=== PATIENT | female | born 1955 | race Caucasian/White ===

== ENCOUNTER 2022-02-14 15:52 | Inpatient (IN) ==
--- NOTE | 2022-02-14 16:04 | Emergency Department Note ---
Impression & Plan Gram-negative bacteremia, Weakness ED Provider Note Provider: Devyn Abbott MD DATE OF SERVICE: 02/14/2022 CHIEF COMPLAINT: Return due to + blood cultures HISTORY OF PRESENT ILLNESS: Patient is a 66-year-old female seen by myself here yesterday for 5 days of fever and myalgias. Blood cultures returned today several bottles with gram-negative axillae. Received ceftriaxone yesterday and sent home on cefdinir for presumed UTI. Patient and denies any significant breathing issues or chest pain. Patient reports that since last evening when she left still with some weakness. No fevers. Feeling may be a bit better. Denies any abdominal pain or flank pain. REVIEW OF SYSTEMS: A total of 10 review of systems was obtained and negative except as stated above in the HPI. PAST MEDICAL HISTORY: As noted above MEDICATIONS: Reviewed home medications started cefdinir today SOCIAL HISTORY: PHYSICAL EXAM: GENERAL: alert and oriented in no acute distress on stretcher Head: normocephalic and atraumatic EYES: No injection, discharge or icterus. NECK: Trachea midline. ENT: Mucous membranes pink and moist. LUNGS: Airway patent. No retractions or tachypnea HEART: Regular rate and rhythm. ABDOMEN: Soft and non-tender, without guarding or rebound. SKIN: Acyanotic, warm, dry, without rashes EXTREMITIES: Without swelling, tenderness or deformity NEUROLOGICAL: No focal deficits. No aphasia. No facial droop or slurred speech. Ambulatory. EK bpm normal sinus rhythm. No PVC or PAC. No acute ST segment elevation or depression with a QTC of 423. CONTINUOUS CARDIAC MONITORING: was ordered and showed a heart rate of 70s-80s bpm in NSR Patient's laboratory studies and imaging reviewed. Differential includes Viral syndrome, otitis, pharyngitis, pneumonia, influenza, meningitis, urinary tract infection, sepsis, bacteremia, as well as other pathologies. IMPRESSION/MEDICAL DECISION MAKING: Blood cultures from yesterday growing gram-negative bacilli. Urine culture yesterday with multiple organisms. We will repeat collection as well as cultures. We will see ceftriaxone yesterday and given another dose of this here today. Benign abdomen on exam. PCR presumes E. coli from the blood cultures. Chest x-ray today reassuring and I doubt this is pneumonia. Does not appear meningitic. Not hypotensive or febrile or tachycardic upon arrival here. Given some IV fluid as well. EKG and troponin are reassuring. Procalcitonin still elevated to 3.9 but white count is trending towards improvement at 13 today. Some hypokalemia noted but will defer additional treatment to the inpatient team. Hospitalist to admit. Did receive again broad-spectrum antibiotics. DIAGNOSIS: Gram-negative bacteremia, weakness, hypokalemia DISPOSITION: Hospitalist will evaluate Patient was agreeable with this plan. Past Med/Surg History Medical History (Updated 02/14/22 @ 17:25 by Hola Garza MD) Hepatitis C, chronic Osteoarthritis of left hip Surgical History History of left hip replacement History of total replacement of both hip joints Family History Mother Breast cancer Father Coronary heart disease Other Cancer Social History Smoking Status: Never smoker Hx Alcohol Use: No Hx Substance Use: No Preferred Language: Macanese Communication Ability: Effective Jet Wiper Required: No Beliefs That Will Affect Care: Gnosticism Gnosticism Beliefs: christianity marital status: Current Living Situation: Spouse current occupational status: employed Other Information That Helps Us Care for You: No Feels Safe at Home: Yes Safety Concerns: Feels Safe At This Time Assistive Devices: None Allergies Allergies Allergy/AdvReac Type Severity Reaction Status Date / Time No Known Allergies Verified 02/13/22 18:00 Home Meds Home Medications Medication Instructions Recorded Confirmed cholecalciferol (vitamin D3) 25 0 mcg PO DAILY 02/13/22 02/13/22 mcg (1,000 unit) capsule (Vitamin D3) magnesium oxide 0 mg PO DAILY 02/13/22 02/13/22 Previous Rx's Medication Instructions Recorded cefdinir 300 mg capsule 300 mg PO BID 7 days #14 caps 02/13/22 Results & Data (ED) Vital Signs Vital Signs - 24 hr 02/14/22 16:00 Temperature 36.7 C Temperature Source Temporal Artery Scan Pulse Rate 80 Respiratory Rate 18 Respiratory Effort / Characteristics Non-Labored Respiratory Depth Normal Blood Pressure 108/62 Blood Pressure Mean 77 Blood Pressure Position Sitting Pulse Oximetry 96 Oxygen Delivery Method Room Air Sepsis Recent Fever Within 48 Hours No Sepsis New/Unexplained Change in Mental Status No Sepsis Action Taken by Nursing No Action Required Laboratory Data Result diagrams: 02/14/22 17:43 02/14/22 17:43 Lab Results 02/14/22 02/14/22 02/14/22 Range/Units 17:26 17:43 17:43 WBC 13.03 H (4.8-10.8) K/ul RBC 3.57 L (3.93-5.22) M/uL Hgb 10.9 L (12.0-16.0) g/dl Hct 32.3 L (34.1-44.9) % MCV 90.5 D (80.0-100.0) fL MCH 30.5 (25.0-34.0) pg MCHC 33.7 (32.0-36.0) g/dL RDW Std Deviation 44.0 (36.4-46.3) fL RDW Coeff of Emelina 13.2 (11.5-14.5) % Plt Count 137 (130-400) K/uL MPV 12.5 H (9.4-12.3) fL Immature Gran % (Auto) 1.7 % Neut % (Auto) 61.1 % Lymph % (Auto) 23.4 % [place] % (Auto) 12.6 % Eos % (Auto) 0.9 % Baso % (Auto) 0.3 % Neut # (Auto) 7.96 H (1.4-6.5) K/uL Lymph # (Auto) 3.05 (1.2-3.4) K/uL [place] # (Auto) 1.64 H (0.24-0.82) K/uL Eos # (Auto) 0.12 (0-0.50) K/uL Baso # (Auto) 0.04 (0-0.2) K/uL Immature Gran # (Auto) 0.22 H (0.00-0.02) K/uL Echinocytes 2+ Acanthocytes (Spur) 3+ Sodium 136 (136-145) mmol/L Potassium 2.9 L (3.5-5.1) mmol/L Chloride 107 (98-107) mmol/L Carbon Dioxide 22 (21-32) mmol/L Anion Gap 7 (3-11) BUN 23 (6-23) mg/dl Creatinine 0.85 D (0.6-1.2) mg/dl Est Cr Clr Drug Dosing 68.7 ml/min Est GFR ( Amer) 82.2 ml/min Est GFR (Non-Af Amer) 70.9 ml/min BUN/Creatinine Ratio 27.1 H (10-20) Glucose 91 (70-99(Fasting)) mg/dl Lactate (0.4-2.0) mmol/L Calcium 7.7 L (8.5-10.1) mg/dl Total Bilirubin 0.4 (0.2-1.0) mg/dl AST 27 (13-39) U/L ALT 27 (7-52) U/L Alkaline Phosphatase 69 (34-104) U/L Troponin I High Sens 7.2 D (0-14) pg/ml Total Protein 6.5 (6.0-8.3) gm/dl Albumin 3.0 L (3.4-5.0) gm/dl Globulin 3.5 (2.5-4.0) gm/dl Albumin/Globulin Ratio 0.9 (0.9-2) Procalcitonin (0-0.5) ng/ml SARS-CoV-2, RNA, NAAT NEGATIVE (NEGATIVE) 02/14/22 02/14/22 Range/Units 17:43 17:43 WBC (4.8-10.8) K/ul RBC (3.93-5.22) M/uL Hgb (12.0-16.0) g/dl Hct (34.1-44.9) % MCV (80.0-100.0) fL MCH (25.0-34.0) pg MCHC (32.0-36.0) g/dL RDW Std Deviation (36.4-46.3) fL RDW Coeff of Emelina (11.5-14.5) % Plt Count (130-400) K/uL MPV (9.4-12.3) fL Immature Gran % (Auto) % Neut % (Auto) % Lymph % (Auto) % [place] % (Auto) % Eos % (Auto) % Baso % (Auto) % Neut # (Auto) (1.4-6.5) K/uL Lymph # (Auto) (1.2-3.4) K/uL [place] # (Auto) (0.24-0.82) K/uL Eos # (Auto) (0-0.50) K/uL Baso # (Auto) (0-0.2) K/uL Immature Gran # (Auto) (0.00-0.02) K/uL Echinocytes Acanthocytes (Spur) Sodium (136-145) mmol/L Potassium (3.5-5.1) mmol/L Chloride (98-107) mmol/L Carbon Dioxide (21-32) mmol/L Anion Gap (3-11) BUN (6-23) mg/dl Creatinine (0.6-1.2) mg/dl Est Cr Clr Drug Dosing ml/min Est GFR ( Amer) ml/min Est GFR (Non-Af Amer) ml/min BUN/Creatinine Ratio (10-20) Glucose (70-99(Fasting)) mg/dl Lactate 0.8 (0.4-2.0) mmol/L Calcium (8.5-10.1) mg/dl Total Bilirubin (0.2-1.0) mg/dl AST (13-39) U/L ALT (7-52) U/L Alkaline Phosphatase (34-104) U/L Troponin I High Sens (0-14) pg/ml Total Protein (6.0-8.3) gm/dl Albumin (3.4-5.0) gm/dl Globulin (2.5-4.0) gm/dl Albumin/Globulin Ratio (0.9-2) Procalcitonin 3.93 H (0-0.5) ng/ml SARS-CoV-2, RNA, NAAT (NEGATIVE) Administered Medications Enoxaparin Sodium (Enoxaparin Inj 40 Mg/0.4 Ml Syr) 40 mg SQ Q24H COURTNEY Stop: 03/16/22 20:29 Last Admin: 02/14/22 21:02 Dose: 40 mg Documented By: RH Discontinued Medications Ceftriaxone Sodium (Rocephin) 2,000 mg in 70 mls @ 140 mls/hr IV NOW STA Stop: 02/14/22 17:03 Last Infusion: 02/14/22 18:59 Dose: 0 mls/hr Documented By: Admin: 02/14/22 17:53 Dose: 140 mls/hr Documented By: DARCY Sodium Chloride (Nss 1000ml) 1,000 mls @ 999 mls/hr IV .Q1H1M ONE Stop: 02/14/22 17:34 Last Infusion: 02/14/22 18:59 Dose: 0 mls/hr Documented By: Admin: 02/14/22 17:20 Dose: 999 mls/hr Documented By: DARCY Discharge Plan Visit Data Chief Complaint: Abnormal Labs/Diagnostic Testing Stated Complaint[facility] Provider: Devyn Abbott Discharge Problem: Gram-negative bacteremia, Weakness Patient Disposition: Admitted As Inpatient Discharge Instructions Interventions: ED Discharge Assessment Last Done: 02/14/22 19:15
[2022-02-14] MEDS ORDERED: cefTRIAXone SODIUM 2,000 MG/70 ML BAG IV STA (16:34)
[2022-02-14] MEDS ORDERED: SODIUM CHLORIDE 0.9% 1000ML 1,000 ML IV ONE (16:34)
--- NOTE | 2022-02-14 17:21 | History & Physical Report ---
Date of Service February 14, 2022 Assessment & Plan (1) Bacteremia due to Escherichia coli: (2) Hypokalemia: (3) Hyponatremia: Plan E.coli bacteremia: -likely urinary source --- UA + for Leuk --- repeating BCx and UCx sent -VSS and overall normal exam -pt currently does not have any abd symptoms therefore no need for any abd imaging -Started the pt on ceftriaxone - neg for COVID/Flu/RSV and Lyme/anaplasmosis Electrolytes abnormalities: - Na+ 134 and K+ 3.3 --- these values are from yesterday - will repeat BMP before treatment Chronic Hep C s/p treatment: -Lfts were normal Diet: Regular diet DVT PPx: Lovenox Code Status: Full code Emergency Contact: : Ivana Benavides [phone] History of Present Illness Chief Complaint: fever and chills Primary Care Provider: Jerardo Rosario MD Pt is a 66 y/o F with Hep C s/p treatment, DJD, b/l PENNY came into the ER for 1 week hx of fever (tmax of 103F), Chills, lack of appetite, and nausea. Denied any abd pain, diarrhea, vomiting, rash, rhinorrhea, nasal congestion or recent procedure. Denied any hx of kidney stones. At bedside: pt denied any CP, SOB, abd pain, dysuria, hematuria, or change in urinary frequency/urgency. Pt was in the ER yesterday and her BCx came back positive for E.coli Allergies Allergy/AdvReac Type Severity Reaction Status Date / Time No Known Allergies Verified 02/13/22 18:00 Home Medications Medication Instructions Recorded Confirmed Type cefdinir 300 mg capsule 300 mg PO BID 7 days #14 caps 02/13/22 Rx cholecalciferol (vitamin D3) 25 0 mcg PO DAILY 02/13/22 02/13/22 History mcg (1,000 unit) capsule (Vitamin D3) magnesium oxide 0 mg PO DAILY 02/13/22 02/13/22 History Past Med/Surg History Medical History (Updated 02/14/22 @ 17:25 by Hola Garza MD) Hepatitis C, chronic Osteoarthritis of left hip Surgical History History of left hip replacement History of total replacement of both hip joints Family History Mother Breast cancer Father Coronary heart disease Other Cancer Social History Smoking Status: Never smoker Preferred Language: American marital status: Current Living Situation: Spouse current occupational status: employed Feels Safe at Home: Yes Review of Systems Review of Systems: At least 10 Review of systems were reviewed and all negative except as indicated in HPI Physical Exam Physical Exam: General:. NAD, well developed, well nourished, average body habitus HEENT:. Normocephalic and atraumatic, Normal Conjunctiva, EOMI, Sclera is non-ic teric Lungs:. No signs of respiratory distress, CTA, no wheezing or crackles Heart:. Normal S1, S2, no murmur Abdominal:. ND, Soft, NT MSK:trace b/l LE pitting edema Skin:. no rash or open wound Psych:. AAOx3, normal affect Results & Data Results & Data ([facility]) Vital Signs (Past 12 Hours) Vital Signs Temp Pulse Resp BP Pulse Ox O2 Del Method 02/14/22 16:00 36.7 C 80 18 108/62 96 Room Air Code Status & VTE Plan VTE Prophylaxis Plan VTE Prophylaxis will be ordered: Yes
[2022-02-14 18:22] LABS: Hematocrit (blood only) 32.3 % (34.1-44.9); Hemoglobin 10.9 g/dl (12.0-16.0); Mean Corpuscular Hemoglobin 30.5 pg (25.0-34.0); Mean Corpuscular Hgb Conc 33.7 g/dL (32.0-36.0); Mean Corpuscular Volume 90.5 fL (80.0-100.0); Mean Platelet Volume 12.5 fL (9.4-12.3); Platelet Count 137 K/uL (130-400); RDW Coefficient of Variation 13.2 % (11.5-14.5); Red Blood Count 3.57 M/uL (3.93-5.22); White Blood Count 13.03 K/ul (4.8-10.8)
[2022-02-14 18:25] LABS: Acanthocytes 3+; Basophils # (auto) 0.04 K/uL (0-0.2); Basophils % (auto) 0.3 %; Echinocytes 2+; Eosinophils # (auto) 0.12 K/uL (0-0.50); Eosinophils % (auto) 0.9 %; Immature Granulocytes # (auto) 0.22 K/uL (0.00-0.02); Immature Granulocytes % (auto) 1.7 %; Lymphocytes # (auto) 3.05 K/uL (1.2-3.4); Lymphocytes % (auto) 23.4 %; Monocytes # (auto) 1.64 K/uL (0.24-0.82); Monocytes % (auto) 12.6 %; Neutrophils # (auto) 7.96 K/uL (1.4-6.5); Neutrophils % (auto) 61.1 %
[2022-02-14 18:37] LABS: Albumin Globulin Ratio 0.9 (0.9-2); BUN Creatinine Ratio 27.1 (10-20); Bilirubin,Total 0.4 mg/dl (0.2-1.0); Calcium 7.7 mg/dl (8.5-10.1); Creatinine Clr Calc Pharmacy 68.7 ml/min; Est GFR (African American) 82.2 ml/min; Est GFR (Non-African American) 70.9 ml/min; Globulin 3.5 gm/dl (2.5-4.0); Potassium 2.9 mmol/L (3.5-5.1); Total Protein 6.5 gm/dl (6.0-8.3); Troponin I High Sensitivity 7.2 pg/ml (0-14)
[2022-02-14 19:05] LABS: Appearance Urine Clear (Clear); Bacteria Urine Automated Negative (Negative); Bilirubin Urine Negative (Negative); Blood Urine Negative (Negative); Color Urine Yellow; Epithelial Cell Urine Auto >30 /lpf (0-5); Glucose Urine UA Negative (Negative); Ketones Urine Negative (Negative); Leukocyte Esterase Urine 2+ (Negative); Nitrite Urine Negative (Negative); Protein Urine 1+ (Negative); RBC Urine Automated 0-4 /hpf (0-4); Specific Gravity Urine 1.011 (1.000-1.030); Urobilinogen Urine Negative (Negative); pH Urine 6.5 (4.5-7.5)
[2022-02-14] MEDS ORDERED: ACETAMINOPHEN 325 MG TAB PO PRN (19:54)
[2022-02-14] MEDS: ENOXAPARIN INJ 40 MG/0.4 ML SYR SQ SCH (21:02)
[2022-02-15 06:40] LABS: Hematocrit (blood only) 36.6 % (34.1-44.9); Hemoglobin 12.6 g/dl (12.0-16.0); Mean Corpuscular Hemoglobin 30.5 pg (25.0-34.0); Mean Corpuscular Hgb Conc 34.4 g/dL (32.0-36.0); Mean Corpuscular Volume 88.6 fL (80.0-100.0); Mean Platelet Volume 12.7 fL (9.4-12.3); Platelet Count 158 K/uL (130-400); RDW Coefficient of Variation 13.2 % (11.5-14.5); RDW Standard Deviation 43.1 fL (36.4-46.3); Red Blood Count 4.13 M/uL (3.93-5.22)
[2022-02-15 07:05] LABS: Basophils # (auto) 0.07 K/uL (0-0.2); Basophils % (auto) 0.6 %; Eosinophils # (auto) 0.12 K/uL (0-0.50); Immature Granulocytes # (auto) 0.48 K/uL (0.00-0.02); Immature Granulocytes % (auto) 3.9 %; Lymphocytes % (auto) 30.1 %; Monocytes # (auto) 1.11 K/uL (0.24-0.82); Neutrophils # (auto) 6.82 K/uL (1.4-6.5); Neutrophils % (auto) 55.4 %
[2022-02-15 07:07] LABS: BUN Creatinine Ratio 23.5 (10-20); Calcium 8.5 mg/dl (8.5-10.1); Creatinine Clr Calc Pharmacy 68.9 ml/min; Est GFR (African American) 82.2 ml/min; Est GFR (Non-African American) 70.9 ml/min; Magnesium 2.2 mg/dl (1.7-2.4); Potassium 3.7 mmol/L (3.5-5.1)
--- NOTE | 2022-02-15 11:19 | Electrocardiogram Report ---
Test Reason : Blood Pressure : / mmHG Vent. Rate : 071 BPM Atrial Rate : 071 BPM P-R Int : 142 ms QRS Dur : 066 ms QT Int : 390 ms P-R-T Axes : 035 -01 026 degrees QTc Int : 423 ms Poor data quality, interpretation may be adversely affected Normal sinus rhythm Normal ECG When compared with ECG of 13-FEB-2022 18:10, No significant change was found Confirmed by Zia Ayers ([id number]) on 02/15/2022 11:18:42 AM Referred By: Devyn Abbott Confirmed By:Zia Ayers
--- NOTE | 2022-02-15 13:38 | Hospitalist Progress Note ---
Date of Service February 15, 2022 Assessment & Plan (1) Bacteremia due to Escherichia coli: (2) Hypokalemia: (3) Hyponatremia: Plan Gram-negative bacteremia Likely urinary source Urinalysis shows 1+ leukocyte esterase with greater than 30 WBC Leukocytosis present Urine culture on 02/13 showed 3 types of organism; all moderate count. Blood culture on 02/13 shows gram-negative bacilli; bio fire positive for E. coli. Repeat urine culture negative; patient received antibiotic prior to urine culture. Blood culture from 02/14 pending Plan; Continue on ceftriaxone for now. Repeat blood culture are pending. -- Monitor for signs of fever. -ID consulted for duration and route of antibiotics. Electrolytes abnormalities: Improved after hydration Chronic Hep C s/p treatment: -Lfts were normal Diet: Regular diet DVT PPx: Lovenox Code Status: Full code Emergency Contact: : Ivana Benavides [phone] Admission and Anticipated Discharge Date Admission Date: February 14, 2022 Subjective Patient seen and examined at bedside. She is comfortable; not in any distress. Patient was febrile 1 week prior to presentation to the ED on 02/13. She is comfortable presently; no episode of fever since admission. Denies any symptoms of UTI. Review of Systems Review of Systems: All systems reviewed & are unremarkable except as noted in Subjective Physical Exam Physical Exam: Constitutional: WD/WN, vitals as above, NAD, sitting up in bed, pleasant, conversing easily Respiratory: normal respiratory effort, lungs clear to auscultation, no wheeze, rales, rhonchi. Normal insp/exp effort, no accessory muscle use Cardiovascular: RRR, no murmur, no edema Vessels: no JVD or carotid bruit Chest: normal inspection of chest Abdomen: Soft, nontender. costovertebral bo not tender. Musculoskeletal: no cyanosis or clubbing, extremities motor strength 5/5 Skin: no rashes, warm and dry normal turgor Neurologic: PERRL, EOMI, accommodation nl, no face palsy, no dysarthria CN's II- XI intact bilaterally and moves all extremities Psychiatric: A+Ox3, euthymic affect Lymphatic: no cervical or axillary lymphadenopathy : deferred Results & Data Results & Data ([facility]) Vital Signs (Past 12 Hours) Vital Signs Temp Pulse Resp BP Pulse Ox O2 Del Method 02/15/22 07:18 36.4 C L 64 16 118/73 97 Room Air Laboratory Results Laboratory Results WBC 12.30 K/ul (4.8-10.8) H 02/15/22 05:37 RBC 4.13 M/uL (3.93-5.22) 02/15/22 05:37 Hgb 12.6 g/dl (12.0-16.0) 02/15/22 05:37 Hct 36.6 % (34.1-44.9) 02/15/22 05:37 MCV 88.6 fL (80.0-100.0) 02/15/22 05:37 MCH 30.5 pg (25.0-34.0) 02/15/22 05:37 MCHC 34.4 g/dL (32.0-36.0) 02/15/22 05:37 RDW Std Deviation 43.1 fL (36.4-46.3) 02/15/22 05:37 RDW Coeff of Emelina 13.2 % (11.5-14.5) 02/15/22 05:37 Plt Count 158 K/uL (130-400) 02/15/22 05:37 MPV 12.7 fL (9.4-12.3) H 02/15/22 05:37 Immature Gran % (Auto) 3.9 % 02/15/22 05:37 Neut % (Auto) 55.4 % 02/15/22 05:37 Lymph % (Auto) 30.1 % 02/15/22 05:37 [place] % (Auto) 9.0 % 02/15/22 05:37 Eos % (Auto) 1.0 % 02/15/22 05:37 Baso % (Auto) 0.6 % 02/15/22 05:37 Neut # (Auto) 6.82 K/uL (1.4-6.5) H 02/15/22 05:37 Lymph # (Auto) 3.70 K/uL (1.2-3.4) H 02/15/22 05:37 [place] # (Auto) 1.11 K/uL (0.24-0.82) H 02/15/22 05:37 Eos # (Auto) 0.12 K/uL (0-0.50) 02/15/22 05:37 Baso # (Auto) 0.07 K/uL (0-0.2) 02/15/22 05:37 Immature Gran # (Auto) 0.48 K/uL (0.00-0.02) H 02/15/22 05:37 Echinocytes 2+ 02/14/22 17:43 Acanthocytes (Spur) 3+ 02/14/22 17:43 Sodium 137 mmol/L (136-145) 02/15/22 05:37 Potassium 3.7 mmol/L (3.5-5.1) D 02/15/22 05:37 Chloride 107 mmol/L (98-107) 02/15/22 05:37 Carbon Dioxide 23 mmol/L (21-32) 02/15/22 05:37 Anion Gap 7 (3-11) 02/15/22 05:37 BUN 20 mg/dl (6-23) 02/15/22 05:37 Creatinine 0.85 mg/dl (0.6-1.2) 02/15/22 05:37 Est Cr Clr Drug Dosing 68.9 ml/min 02/15/22 05:37 Est GFR ( Amer) 82.2 ml/min 02/15/22 05:37 Est GFR (Non-Af Amer) 70.9 ml/min 02/15/22 05:37 BUN/Creatinine Ratio 23.5 (10-20) H 02/15/22 05:37 Glucose 99 mg/dl (70-99(Fasting)) 02/15/22 05:37 Lactate 0.8 mmol/L (0.4-2.0) 02/14/22 17:43 Calcium 8.5 mg/dl (8.5-10.1) 02/15/22 05:37 Magnesium 2.2 mg/dl (1.7-2.4) 02/15/22 05:37 Total Bilirubin 0.4 mg/dl (0.2-1.0) 02/14/22 17:43 AST 27 U/L (13-39) 02/14/22 17:43 ALT 27 U/L (7-52) 02/14/22 17:43 Alkaline Phosphatase 69 U/L (34-104) 02/14/22 17:43 Troponin I High Sens 7.2 pg/ml (0-14) D 02/14/22 17:43 Total Protein 6.5 gm/dl (6.0-8.3) 02/14/22 17:43 Albumin 3.0 gm/dl (3.4-5.0) L 02/14/22 17:43 Globulin 3.5 gm/dl (2.5-4.0) 02/14/22 17:43 Albumin/Globulin Ratio 0.9 (0.9-2) 02/14/22 17:43 Procalcitonin 3.93 ng/ml (0-0.5) H 02/14/22 17:43 Urine Color Yellow 02/14/22 18:50 Urine Appearance Clear (Clear) 02/14/22 18:50 Urine pH 6.5 (4.5-7.5) 02/14/22 18:50 Ur Specific [place] 1.011 (1.000-1.030) 02/14/22 18:50 Urine Protein 1+ (Negative) H 02/14/22 18:50 Urine Glucose (UA) Negative (Negative) 02/14/22 18:50 Urine Ketones Negative (Negative) 02/14/22 18:50 Urine Blood Negative (Negative) 02/14/22 18:50 Urine Nitrite Negative (Negative) 02/14/22 18:50 Urine Bilirubin Negative (Negative) 02/14/22 18:50 Urine Urobilinogen Negative (Negative) 02/14/22 18:50 Ur Leukocyte Esterase 2+ (Negative) H 02/14/22 18:50 Urine WBC (Auto) 10-30 /hpf (0-5) H 02/14/22 18:50 Urine RBC (Auto) 0-4 /hpf (0-4) 02/14/22 18:50 U Hyaline Cast (Auto) 1-5 /lpf (0-5) 02/14/22 18:50 U Epithel Cells (Auto) >30 /lpf (0-5) H 02/14/22 18:50 Urine Bacteria (Auto) Negative (Negative) 02/14/22 18:50 SARS-CoV-2, RNA, NAAT NEGATIVE (NEGATIVE) 02/14/22 17:26
[2022-02-15] MEDS: cefTRIAXone SODIUM 2,000 MG in DEXTROSE 5% 50 ML IV SCH (17:12)
[2022-02-15] MEDS ORDERED: cefTRIAXone SODIUM 2,000 MG in DEXTROSE 5% 50 ML IV SCH (18:00)
[2022-02-15] MEDS: ENOXAPARIN INJ 40 MG/0.4 ML SYR SQ SCH (20:40)
[2022-02-16 07:40] LABS: Hematocrit (blood only) 36.2 % (34.1-44.9); Hemoglobin 12.7 g/dl (12.0-16.0); Mean Corpuscular Hemoglobin 30.7 pg (25.0-34.0); Mean Corpuscular Hgb Conc 35.1 g/dL (32.0-36.0); Mean Corpuscular Volume 87.4 fL (80.0-100.0); Platelet Count 201 K/uL (130-400); RDW Coefficient of Variation 13.2 % (11.5-14.5); RDW Standard Deviation 41.9 fL (36.4-46.3); Red Blood Count 4.14 M/uL (3.93-5.22); White Blood Count 10.23 K/ul (4.8-10.8)
[2022-02-16 08:08] LABS: BUN Creatinine Ratio 22.5 (10-20); Calcium 8.6 mg/dl (8.5-10.1); Creatinine Clr Calc Pharmacy 65.8 ml/min; Est GFR (African American) 77.7 ml/min; Est GFR (Non-African American) 67.1 ml/min; Potassium 3.7 mmol/L (3.5-5.1)
[2022-02-16 08:44] LABS: Basophils # (auto) 0.08 K/uL (0-0.2); Basophils % (auto) 0.8 %; Eosinophils # (auto) 0.13 K/uL (0-0.50); Eosinophils % (auto) 1.3 %; Immature Granulocytes # (auto) 0.55 K/uL (0.00-0.02); Immature Granulocytes % (auto) 5.4 %; Lymphocytes # (auto) 3.22 K/uL (1.2-3.4); Lymphocytes % (auto) 31.5 %; Monocytes # (auto) 0.86 K/uL (0.24-0.82); Monocytes % (auto) 8.4 %; Neutrophils # (auto) 5.39 K/uL (1.4-6.5); Neutrophils % (auto) 52.6 %
[2022-02-16] MEDS ORDERED: OPTIRAY 350 100ml IV ONE (12:05)
--- NOTE | 2022-02-16 12:24 | CT Scan Report ---
CT OF THE ABDOMEN AND PELVIS WITH CONTRAST CLINICAL HISTORY: E. coli bacteremia. COMPARISON STUDY: CT of the abdomen and pelvis September 23, 2011. TECHNIQUE: Following IV administration of 87 mL of Optiray, axial images of the abdomen and pelvis we re obtained from the lung bases to the proximal femurs. Images were reviewed in the axial, sagittal, and coronal planes. IV contrast was administered without complication. Automated exposure control wa s utilized for the study. A dose lowering technique was utilized adhering to the principles of ALARA . CT DOSE: 787.09 mGy.cm FINDINGS: A trace left pleural effusion is noted. Note is again made of a hemangioma within segment 5 /4 of the liver. There is no biliary or pancreatic ductal dilatation dictation. Findings suggestive o f adenomyomatosis of the gallbladder fundus are unchanged. There is no pericholecystic stranding. Spl een, adrenal glands, right kidney and pancreas are normal. The left nephrogram is slightly delayed. T he left kidney slightly enlarged. There is trace left perinephric stranding. No renal abscess is pres ent. No hydronephrosis. No urinary calculi are identified although the distal ureters are obscured by stre ak artifact from bilateral hip arthroplasties. There is no evidence for a bowel obstruction. Caliber and wall thickness of small and large bowel are normal. The endometrium appears thickened. Alternativ eliane, this could reflect fluid within the endometrial canal. This was shown on prior CT. No acute frac ture or suspicious lesion within the visualized skeletal structures is present. IMPRESSION: 1. Findings suggestive of acute left sided pyelonephritis. No renal abscess. No hydronephrosis. 2. Endometrial thickening versus fluid within the endometrial canal. Correlation with history of post menopausal bleeding and nonemergent pelvic ultrasound is recommended. 3. Trace left pleural effusion. 4. No bowel obstruction. No bowel wall thickening. ACT 112: Positive. There are findings on this exam that require communication between the performing entity and the patient following Patient Test Result Information Act ([place] Act 112) guidelines. Electronically signed by: Ashok Dominguez M.D. 02/16/2022 12:21 PM
[2022-02-16] MEDS ORDERED: metroNIDAZOLE 500 MG TAB PO SCH (14:00)
--- NOTE | 2022-02-16 14:55 | Discharge Summary ---
Date of Service February 16, 2022 Admission HPI Per Admitting Provider Pt is a 66 y/o F with Hep C s/p treatment, DJD, b/l PENNY came into the ER for 1 week hx of fever (tmax of 103F), Chills, lack of appetite, and nausea. Denied any abd pain, diarrhea, vomiting, rash, rhinorrhea, nasal congestion or recent procedure. Denied any hx of kidney stones. At bedside: pt denied any CP, SOB, abd pain, dysuria, hematuria, or change in urinary frequency/urgency. Pt was in the ER yesterday and her BCx came back positive for E.coli Admission Exam Per Admitting Provider General:.NAD, well developed, well nourished, average body habitus HEENT:.Normocephalic and atraumatic, Normal Conjunctiva, EOMI, Sclera is non- icteric Lungs:.No signs of respiratory distress, CTA, no wheezing or crackles Heart:.Normal S1, S2, no murmur Abdominal:.ND, Soft, NT MSK:trace b/l LE pitting edema Skin:.no rash or open wound Psych:.AAOx3, normal affect Principal Diagnosis Urosepsis E. coli bacteremia Acute left-sided pyelonephritis Discharge Exam Constitutional: WD/WN, vitals as above, NAD, sitting up in bed, pleasant, conversing easily Respiratory: normal respiratory effort, lungs clear to auscultation, no wheeze, rales, rhonchi. Normal insp/exp effort, no accessory muscle use Cardiovascular: RRR, no murmur, no edema Vessels: no JVD or carotid bruit Chest: normal inspection of chest Abdomen: Soft, nontender. costovertebral bo not tender. Musculoskeletal: no cyanosis or clubbing, extremities motor strength 5/5 Skin: no rashes, warm and dry normal turgor Neurologic: PERRL, EOMI, accommodation nl, no face palsy, no dysarthria CN's II- XI intact bilaterally and moves all extremities Psychiatric: A+Ox3, euthymic affect Lymphatic: no cervical or axillary lymphadenopathy : deferred Discharge Data Allergies Allergy/AdvReac Type Severity Reaction Status Date / Time No Known Allergies Verified 02/13/22 18:00 Consultations 02/14/22 16:42 ED Decision to Admit Stat 02/15/22 13:36 Consult Infectious Diseases Routine Ordered Studies 02/16/22 10:09 CT abd pelvis IV con only Urgent Hospital Course (1) Bacteremia due to Escherichia coli: (2) Hypokalemia: (3) Hyponatremia: Plan Patient is a 66-year-old female with hx of Hep C s/p tx presented to the ED on 02/13 with 1 week of fever up to 103F. Urine culture and blood cultures were drawn; patient was discharged home after 1 dose of ceftriaxone. Blood cultures came back positive for E. coli bacteremia and patient was asked to come back to ED. She was admitted to general medical floor for further evaluation and treatment. CT abdomen pelvis was done which showed acute left-sided pyelonephritis. Patient denied any symptoms of UTI, abdominal pain or flank pain. She was afebrile throughout the hospitalization. Her leukocytosis res olved. Her repeat blood cultures were negative. Infectious disease was consulted; recommended 14 days total of antibiotics and ciprofloxacin at discharge. Patient was discharged home with ciprofloxacin for 12 days more. Incidental finding of endometrial thickening was noted in the CT abdomen/pelvis; patient was informed regarding the finding and asked to follow-up with her primary care doctor for further imaging. Total Time Total Time Spent Total Time Spent (In Minutes): 35 Total Time Includes: Examination of the Patient, Discharge Planning, Medication Reconciliation, Communication With Other Providers and Other Discharge Plan Discharge Items Patient Disposition: Home - Self-Care Reason For Visit: bacteremia Discharge Diagnosis: Urosepsis Left-sided pyelonephritis Activity: Resume your previous activity Non-emergency contact: Primary Care Provider Call non-emergency contact if: you have any medication questions and your symptoms worsen Follow-up/Referrals: Jerardo Rosario MD [Primary Care Provider] - 02/20/22 11:00 am (Date & Time 02/20/2022 11:00 AM Provider Jerardo Rosario III, MD Department [facility] ) Diet: Regular Addtl Attending Provider Instructions: You were admitted to the hospital with E. coli bacteremia. The CT abdomen revealed left-sided kidney infection. Your repeat blood culture is negative so far. You received 2 days of IV antibiotics during her hospitalization. You were prescribed oral antibiotic (ciprofloxacin 500 mg twice daily) to be taken for next [address] abdomen and pelvis; you are found to have endometrial( inner lining of uterus thickening ; you will need pelvic ultrasound in nonemergent basis. Please follow-up with her primary care doctor. Pending Studies at Discharge: No Stand-Alone Forms: My [facility], Smoking Cessation Medications and DC Order Prescriptions: New ciprofloxacin HCl [Cipro] 500 mg tablet 500 mg PO BID Qty: 12 0RF Discharge Orders: Discharge Order (Routine); Ordered 02/16/22 Ordered By: Haresh Edge Admission Data Admit Date/Time: 02/14/22 17:06 Attending Provider: Haresh Edge Admit Provider: Hola Garza Primary Care Provider: Jerardo Rosario Other Providers: Hola Garza ; Franck Ramsay ; Nicki Miranda ; Ken Oliveira I. ; Imer Hinkle II ; Dinorah Galvan ; Jose Burrows ; Son Salvador ; Gloria Pepe Other Interventions: Discharge Summary Assessment (RN) Last Done: 02/16/22 14:33
[2022-02-16] MEDS: cefTRIAXone SODIUM 2,000 MG in DEXTROSE 5% 50 ML IV SCH (16:40)
[2022-02-16] MEDS ORDERED: DESTROY THIS MEDICATION ONE (18:46)
== END 2022-02-16 18:46 | disposition home or self-care (01) | DRG 872 ==
LOC: ED 15:52 → SUATTDRO 17:06 → 3N 17:06